=== PATIENT | female | born 1980 | race Caucasian/White ===

== ENCOUNTER 2017-05-29 20:19 | Emergency (ER) ==
[2017-05-29 20:30] VITALS: BMI 38.4
[2017-05-29] MEDS ORDERED: SOLU-MEDROL 125 MG IM STA (20:47)
[2017-05-29] MEDS ORDERED: BENADRYL PO STA (20:47)
--- NOTE | 2017-05-29 21:14 | ED.PDOC ---
General ED Provider: Dr. ALEJO KING Chief Complaint: Rash Stated Complaint: patient states she started itchin 6 days ago and started having a rash two days ago on the wrists and abdomen now on the back. They are puritic. Denies any exposures to new soaps deterages or lotions. Time Seen by Physician: 20:20 Mode of Arrival: Walk-In Information Source: Patient Exam Limitations: No limitations Primary Care Provider: STEPHY HEBERT Nursing and Triage Documentation Reviewed and Agree: Yes Skin Complaint Exam - Skin Rash/Itching Complaint/Exam Onset/Duration: 2 days Symptoms Are: Still present Initial Severity: Mild Current Severity: Moderate Location: Truck ( abdomen and lower back) Bilateral wrist Potential Exposures: Reports: Unknown Prior Treatment: none Aggravating: Reports: None Alleviating: Reports: None Associated Signs and Symptoms: Denies: Difficulty breathing, Fever, Chills Skin Findings: Present: Urticaria Differential Diagnoses: Allergic Reaction, Contact Dermatitis, Urticaria Review of Systems - Review Of Systems Constitutional: Reports: No symptoms Eyes: Reports: No symptoms Ears, Nose, Mouth, Throat: Reports: No symptoms Respiratory: Reports: No symptoms Cardiac: Reports: No symptoms GI: Reports: No symptoms : Reports: No symptoms Musculoskeletal: Reports: No symptoms Skin: Reports: Rash Neurological: Reports: Anxiety Endocrine: Reports: No symptoms Hematologic/Lymphatic: Reports: No symptoms All Other Systems: Reviewed and Negative Past Medical History - Past Medical History Previously Healthy: Yes Endocrine: Reports: None Cardiovascular: Reports: Hypertension Respiratory: Reports: None Hematological: Reports: None Gastrointestinal: Reports: None Genitourinary: Reports: None Neuro/Psych: Reports: Bipolar Disorder, Other Musculoskeletal: Reports: Other (Fibromyalgia ) Cancer: Reports: None Last Menstrual Period: last week - Surgical History General Surgical History: Reports: ( x 3 ), Appendectomy (2000 ) - Family History Family History: Reports: None - Social History Smoking Status: Never smoker Hx Substance Use: No Alcohol Screening: None - Immunizations Tetanus Shot up to Date: Yes Physical Exam - Physical Exam Appearance: Ill-appearing, No pain distress, Obese Ill-appearing: Mild Eyes: HUNTER, EOMI, Conjunctiva clear ENT: Ears normal, Nose normal, Oropharynx normal Neck: Supple (no stridor) Respiratory: Airway patent, Breath sounds clear, Breath sounds equal, Respirations nonlabored Cardiovascular: RRR, Pulses normal, No rub, No murmur GI/: Soft, Nontender, No masses, Bowel sounds normal, No Organomegaly Musculoskeletal: Normal strength, ROM intact, No edema, No calf tenderness Skin: Warm, Dry Neurological: Sensation intact, Motor intact, Reflexes intact, Cranial nerves intact, Alert, Oriented Psychiatric: Affect appropriate, Mood appropriate Critical Care Note - Critical Care Note Total Time (mins): 0 Course - Course Orders, Labs, Meds: Orders Category Date Time Status Diphenhydramine HCl [Benadryl] MEDS 05/29/17 20:47 Discontinued 50 mg PO ONCE STA Methylprednisolone Sod Succ/Pf [Solu-Medrol 125 mg] MEDS 05/29/17 20:47 Discontinued 125 mg IM ONCE STA Medications Discontinued Medications Generic Name Dose Route Start Last Admin Trade Name Freq PRN Reason Stop Dose Admin Diphenhydramine HCl 50 mg 05/29/17 20:47 05/29/17 20:54 Benadryl PO 05/29/17 20:48 50 mg ONCE STA Administration Methylprednisolone Sodium Succinate 125 mg 05/29/17 20:47 05/29/17 20:55 Solu-Medrol 125 Mg IM 05/29/17 20:48 125 mg ONCE STA Administration Vital Signs: Temp Pulse Resp BP Pulse Ox 05/29/17 20:19 98.5 F 79 20 161/109 H 97 Departure - Departure Time of Disposition: 21:17 Disposition: HOME SELF-CARE Discharge Problem: Urticaria Instructions: Urticaria (ED) Condition: Fair Pt referred to PMD for follow-up: Yes Additional Instructions: Take medications as prescribed Follow up with PCP in 3 days Take over the counter bendryl and claritin Prescriptions: Methylprednisolone [Medrol Dosepak] 4 mg PO DIRECTED #1 pkg Allergies/Adverse Reactions: Allergies No Known Allergies Allergy (Verified 05/29/17 20:25) Home Medications: Ambulatory Orders Citalopram Hydrobromide [Celexa] 20 mg PO BEDTIME 05/29/17 Cyclobenzaprine HCl [Flexeril] 5 mg PO TID 05/29/17 Diclofenac Sodium 50 mg PO BID 05/29/17 Fluconazole [Diflucan] 150 mg PO WEEKLY 05/29/17 Gabapentin 600 mg PO TID 05/29/17 Levothyroxine Sodium 100 mcg PO DAILY 05/29/17 Methylprednisolone [Medrol Dosepak] 4 mg PO DIRECTED #1 pkg 05/29/17 Metoprolol Tartrate 50 mg PO BID 05/29/17 Disposition Discussed With: Patient, Family
[2017-05-30 02:02] VITALS: BP 152/92; TEMP 98.4
== END 2017-05-29 21:20 | disposition home or self-care (01) ==
LOC: ED 20:19
DX: L50.9 Urticaria, unspecified (principal)
CPT/HCPCS: 96372; 99282